=== PATIENT | female | born 1960 | race Caucasian/White ===

== ENCOUNTER 2017-12-31 03:56 | Emergency (ER) | payer MEDICAID ==
[~2017-12-31] VITALS: Ht 162.6 cm; Wt 117.9 kg
[2017-12-31 04:07] VITALS: BP_SYST 172
[2017-12-31] MEDS ORDERED: KETOROLAC TROMETHAMINE 60 MG/2 ML VIAL IM ONE (04:30)
[2017-12-31] MEDS ORDERED: IBUPROFEN 800 MG TABLET PO ONE (05:15)
[2017-12-31 05:33] VITALS: BP_SYST 152
== END 2017-12-31 05:33 | disposition home or self-care (01) ==
LOC: SED 03:56
DX: S16.1XXA Strain of muscle, fascia and tendon at neck level, initial encounter (principal); Z88.0 Allergy status to penicillin; Z88.8 Allergy status to other drugs, medicaments and biological substances; X58.XXXA Exposure to other specified factors, initial encounter; Y93.89 Activity, other specified; Y92.89 Other specified places as the place of occurrence of the external cause; Y99.8 Other external cause status; I10 Essential (primary) hypertension
CPT/HCPCS: 70360-TC; 99284

== ENCOUNTER 2018-08-14 05:09 | Emergency (ER) | payer MEDICAID ==
[~2018-08-14] VITALS: Ht 162.6 cm; Wt 113.4 kg
[2018-08-14 05:09] VITALS: BP_SYST 146
[2018-08-14] MEDS ORDERED: MAG HYDROX/AL HYDROX/SIMETH 30 ML, BELLADONNA ALKALOIDS/PHENOBARB 10 ML, LIDOCAINE VISC... PO ONE ×3 (06:00)
[2018-08-14 06:20] VITALS: BP_SYST 135
== END 2018-08-14 06:20 | disposition home or self-care (01) ==
LOC: SED 05:09
DX: R07.89 Other chest pain (principal); R03.0 Elevated blood-pressure reading, without diagnosis of hypertension; Z88.0 Allergy status to penicillin; Z88.8 Allergy status to other drugs, medicaments and biological substances
CPT/HCPCS: 93005; 99283; J2001

== ENCOUNTER 2020-05-13 02:14 | Emergency (ER) | payer MEDICAID ==
[~2020-05-13] VITALS: Ht 165.1 cm; Wt 113.4 kg
[2020-05-13 02:30] VITALS: BP_SYST 132
[2020-05-13 04:00] LABS: BASOPHILS # (AUTO) 0.1 K/uL (0.0-0.2); BASOPHILS % (AUTO) 0.9 % (0.0-2.0); EOSINOPHILS # (AUTO) 0.3 K/uL (0.0-0.4); MEAN CORPUSCULAR HGB CONC 34 % (32-36); NEUTROPHILS # (AUTO) 7.2 K/uL (1.8-7.7); NEUTROPHILS % (AUTO) 73.6 % (40.0-70.0); PLATELET COUNT (AUTO) 264 K/uL (130-430)
[2020-05-13 04:08] LABS: EOSINOPHILS % (AUTO) 2.9 % (0.0-4.0); HEMATOCRIT 37.5 % (36-48); HEMOGLOBIN 12.6 g/dL (12.0-16.0); LYMPHOCYTES # (AUTO) 1.7 K/uL (1.0-5.5); LYMPHOCYTES % (AUTO) 17.8 % (20.5-51.5); MEAN CORPUSCULAR HEMOGLOBIN 26 pg (27-31); MEAN CORPUSCULAR VOLUME 79 fL (79.0-98.0); MONOCYTES # (AUTO) 0.5 K/uL (0.0-1.0); MONOCYTES % (AUTO) 4.8 % (1.7-9.3); RED BLOOD CELL COUNT(AUTO) 4.75 MIL/uL (4.2-6.2); RED CELL DISTRIBUTION WIDTH 16.1 % (9.0-15.0); WHITE BLOOD COUNT (AUTO) 9.8 K/uL (4.8-10.8)
[2020-05-13 04:12] LABS: ANION GAP 9 (5-15); CALCIUM 8.9 mg/dL (8.4-11.0); CHLORIDE 104 mmol/L (98-107); CREATININE 0.84 mg/dL (0.55-1.30); GLUCOSE 102 mg/dL (70-99); POTASSIUM 3.8 mmol/L (3.5-5.1); SODIUM SERUM 140 mmol/L (136-145); UREA NITROGEN, BLOOD 19 mg/dL (8-21)
[2020-05-13 04:21] LABS: ALANINE AMINOTRANSFERASE 22 U/L (12-78); ALBUMIN 3.1 g/dL (3.4-4.8); ASPARTATE AMINOTRANSFERASE 15 U/L (10-37); TOTAL BILIRUBIN 0.4 mg/dL (0.0-1.0)
[2020-05-13 04:27] LABS: GFR AFRICAN AMERICAN 89 mL/min (>90)
[2020-05-13 05:42] VITALS: BP_SYST 128
== END 2020-05-13 05:44 | disposition home or self-care (01) ==
LOC: SED 02:14
DX: R20.2 Paresthesia of skin (principal); R42 Dizziness and giddiness; Z88.0 Allergy status to penicillin; Z88.6 Allergy status to analgesic agent; Z20.828 Contact with and (suspected) exposure to other viral communicable diseases
CPT/HCPCS: 36415; 70450-TC; 71045; 80053; 82962; 84484; 85025; 93005; 99285

== ENCOUNTER 2021-01-26 06:16 | Emergency (ER) | payer MEDICAID ==
[~2021-01-26] VITALS: Ht 165.1 cm; Wt 127.0 kg
[2021-01-26 06:25] VITALS: BP_SYST 137
--- NOTE | 2021-01-26 06:28 | NUR ---
Patient to ER bed 6 to gown for evaluation. Side rails up. Report given to KENIA SAN.
--- NOTE | 2021-01-26 06:29 | NUR ---
Came in ER ambulatory from home this 60 year old female, AAOX4, breathing spontaneously at room air, not in distress noted. With chief complaints of right thumb pain after she heard a pop up sound, she push her right hand towards the floor. History of HTN, Hernia repair and hysterectomy, allergy to Penicillin, lorazepam, midazolam.
--- NOTE | 2021-01-26 06:33 | NUR ---
Seen and examined by Dr. Page, ER Attending
--- NOTE | 2021-01-26 06:43 | NUR ---
Medication given as ordered
[2021-01-26] MEDS ORDERED: IBUPROFEN 600 MG TABLET PO ONE (06:45)
--- NOTE | 2021-01-26 06:50 | NUR ---
packaging technician at bedside
--- NOTE | 2021-01-26 07:10 | NUR ---
Endorsed to day shift RN Alexandru/ JASWINDER Dwyer in stable condition for continuity of care
--- NOTE | 2021-01-26 07:22 | NUR ---
pt alert and oriented resting in [facility].
[2021-01-26] MEDS ORDERED: IBUP-1969 PO (07:47)
[2021-01-26 07:59] VITALS: BP_SYST 137
--- NOTE | 2021-01-26 08:00 | NUR ---
Patient given written and verbal discharge instructions and verbalizes understanding. ER MD discussed with patient the results and treatment provided. Patient in stable condition. ID arm band removed. Rx of motrin given. Patient educated on pain management and to follow up with PMD. Pain Scale 0/10 Opportunity for questions provided and answered. Medication side effect fact sheet provided.
== END 2021-01-26 08:00 | disposition home or self-care (01) ==
LOC: SED 06:16
DX: M79.644 Pain in right finger(s) (principal); Z88.0 Allergy status to penicillin; Z88.8 Allergy status to other drugs, medicaments and biological substances; Z79.899 Other long term (current) drug therapy
CPT/HCPCS: 73140-TC; 99283

== ENCOUNTER 2023-03-07 19:51 | Emergency (ER) | payer MEDICAID ==
[~2023-03-07] VITALS: Ht 162.6 cm; Wt 131.1 kg
[~2023-03-07 19:51] MED LIST: IBUP-1969 PO
--- NOTE | 2023-03-07 20:55 | NUR ---
PATIENT PRESENTS WIT 04/20 MEDIAL ABDOMEN (PRESSURE) PAIN THAT BEGAIN AT 1600, URINARY INCONTINENCE, CONSTIPATION, BELIEVES THAT SHE REACTED POORLY TO [facility] EVEN THOUGH MEDICATION STOPED TWO WEEKS AGO
[2023-03-07 20:57] VITALS: BP_SYST 176; PULSE 61; RESP 20; TEMP 97.5; O2SAT 96
--- NOTE | 2023-03-07 22:05 | NUR ---
UA SENT TO LAB.
--- NOTE | 2023-03-07 22:07 | NUR ---
Patient to ER bed 6 to gown for evaluation. Side rails up. Report given to Katt SAN.
--- NOTE | 2023-03-07 22:10 | NUR ---
PT BIB BY SELF C/O ABDOMINAL PAIN FOR THE LAST 2 DAYS. PT STATES SHE HAS BEEN HAVING ON AND OFF DIARRHEA/ CONSTIPATION FOR THE LAST 2 DAYS. PT HAS A HX OF HTN, DM, AND HIGH CHOLESTROLPT DENIES RADATING PAIN AND STATES IT IS IN THE MIDDLE AREA. PT IS G[facility] 15 EYES OPEN SPONTANEOUSLY. PT IS ALERT AND ORINTED TO PERSON, PLACE, TIME, AND SITUATION. PT OBEYS COMMANDS. PT DENIES N/V. PT DENIES SOB OR CHEST PAIN. PT SKIN IS WARM TO TOUCH. PT IS IN ROOM 6 ON THE MONITOR PLAN OF CONTINUES.
--- NOTE | 2023-03-07 22:15 | NUR ---
ER at bedside examining patient.
[2023-03-07 22:27] LABS: EOSINOPHILS # (AUTO) 0.1 K/uL (0.0-0.4); LYMPHOCYTES # (AUTO) 0.7 K/uL (1.0-5.5); MONOCYTES % (AUTO) 3.6 % (1.7-9.3); WHITE BLOOD COUNT (AUTO) 9.8 K/uL (4.8-10.8)
[2023-03-07 22:35] LABS: BASOPHILS % (AUTO) 0.4 % (0.0-2.0); EOSINOPHILS % (AUTO) 0.8 % (0.0-4.0); HEMOGLOBIN 14.4 g/dL (12.0-16.0); LYMPHOCYTES % (AUTO) 7.2 % (20.5-51.5); MEAN CORPUSCULAR HEMOGLOBIN 26 pg (27-31); MEAN CORPUSCULAR HGB CONC 33 % (32-36); MEAN CORPUSCULAR VOLUME 79 fL (79.0-98.0); MONOCYTES # (AUTO) 0.4 K/uL (0.0-1.0); NEUTROPHILS # (AUTO) 8.7 K/uL (1.8-7.7); PLATELET COUNT (AUTO) 282 K/uL (130-430); RED BLOOD CELL COUNT(AUTO) 5.54 MIL/uL (4.2-6.2); RED CELL DISTRIBUTION WIDTH 16.1 % (9.0-15.0)
[2023-03-07 22:47] LABS: ALBUMIN 3.1 g/dL (3.4-4.8); CALCIUM 9.3 mg/dL (8.4-11.0); CREATININE 0.96 mg/dL (0.55-1.30); TOTAL BILIRUBIN 1.4 mg/dL (0.0-1.0)
[2023-03-07 23:05] LABS: BILIRUBIN,URINE 1+ (NEGATIVE); BLOOD, URINE NEGATIVE (NEGATIVE); CLARITY/URINE CLEAR (CLEAR); COLOR,URINE YELLOW (YELLOW); GLUCOSE,URINE NEGATIVE (NEGATIVE); KETONES,URINE NEGATIVE (NEGATIVE); LEUKOCYTE ESTERASE ,URINE NEGATIVE (NEGATIVE); NITRITE, URINE NEGATIVE (NEGATIVE); PROTEIN URINE NEGATIVE (NEGATIVE)
--- NOTE | 2023-03-08 00:30 | NUR ---
PT IN ROOM 6 ON HER PHONE. PLAN OF CARE CONTINUES.
[2023-03-08 02:46] VITALS: BP_SYST 172; PULSE 60; RESP 20; TEMP 98.1; O2SAT 96
--- NOTE | 2023-03-08 02:47 | NUR ---
Patient given written and verbal discharge instructions and verbalizes understanding. ER MD discussed with patient the results and treatment provided. Patient in stable condition. ID arm band removed. Patient educated on ABOMINAL PAIN management and to follow up with PMD. Pain Scale 5 OUT OF 10. Opportunity for questions provided and answered. Medication side effect fact sheet provided.
== END 2023-03-08 02:46 | disposition home or self-care (01) ==
LOC: SED 19:51
DX: R10.33 Periumbilical pain (principal); R94.5 Abnormal results of liver function studies; R35.0 Frequency of micturition; I10 Essential (primary) hypertension; Z88.0 Allergy status to penicillin; Z88.4 Allergy status to anesthetic agent; Z88.8 Allergy status to other drugs, medicaments and biological substances; Z79.899 Other long term (current) drug therapy
CPT/HCPCS: 36415; 76376; 80053; 81003; 83690; 85025; 99284